=== PATIENT | female | born 1935 | race Caucasian/White ===

== ENCOUNTER 2017-06-09 10:31 | Outpatient (CLI) | payer OTHER | END 2017-06-09 19:36 | disposition home or self-care (01) | LOC: SMA 10:31 | PROVIDERS: ATTEND Family Medicine | DX: Z12.31 Encounter for screening mammogram for malignant neoplasm of breast (principal) | CPT/HCPCS: G0202 ==

== ENCOUNTER 2018-06-11 10:14 | Outpatient (CLI) | payer OTHER | END 2018-06-11 20:11 | disposition home or self-care (01) | LOC: SMA 10:14 | PROVIDERS: ATTEND Obstetrics & Gynecology Gynecology | DX: Z12.31 Encounter for screening mammogram for malignant neoplasm of breast (principal) | CPT/HCPCS: 77067 ==

== ENCOUNTER 2021-06-13 20:47 | Emergency (ER) | payer BC, OTHER ==
[~2021-06-13] VITALS: Ht 147.3 cm; Wt 49.9 kg
[2021-06-13 20:50] VITALS: BP_SYST 149
--- NOTE | 2021-06-13 20:55 | NUR ---
PT TO BED 2 FOR EVALUATION.
--- NOTE | 2021-06-13 21:07 | NUR ---
ER at bedside examining patient.
--- NOTE | 2021-06-13 21:08 | NUR ---
pt arrived to ER for complaints of head and r knee pain after a trip and fall. at 1999 pt was walking outside and tripped on the curb and fell on the concrete. -KO. 01/19 pain now. pt is on aspirin for a previous "mini stroke" about 2 months ago.
--- NOTE | 2021-06-13 21:25 | NUR ---
Patient transported to radiology via wheelchair, accompanied by tech.
[2021-06-13] MEDS ORDERED: IBUPROFEN 600 MG TABLET PO ONE (22:30)
[2021-06-13] MEDS ORDERED: NAPR-686 PO (22:31)
[2021-06-13 22:45] VITALS: BP_SYST 136
== END 2021-06-13 21:25 | disposition home or self-care (01) ==
LOC: SED 20:47
DX: S05.11XA Contusion of eyeball and orbital tissues, right eye, initial encounter (principal); M25.561 Pain in right knee; W18.39XA Other fall on same level, initial encounter; Y93.89 Activity, other specified; Y92.89 Other specified places as the place of occurrence of the external cause; Y99.8 Other external cause status
CPT/HCPCS: 70450-TC; 70486-TC; 76376; 99285